=== PATIENT | female | born 1980 | race Caucasian/White ===

== ENCOUNTER 2022-07-25 12:49 | Emergency (ER) | payer BC ==
[~2022-07-25] VITALS: Ht 165.1 cm; Wt 61.2 kg
[2022-07-25 12:50] VITALS: BP_SYST 132
--- NOTE | 2022-07-25 12:50 | NUR ---
Placed in room 02 . Placed on jailer/training officer, blood pressure machine and pulse oximeter. To gown for exam. Side rails up. Report given to DELVIS RENDON.
--- NOTE | 2022-07-25 12:55 | NUR ---
ER DR. MATTHEW AT THE BEDSIDE EXAMINING PT
--- NOTE | 2022-07-25 12:59 | NUR ---
PT COMES IN WALKING WITH Diily for c/o epigastric pain x 2 days after eating peppercinnis. Denies sob, states "I think I have chest pain" Resp even and unlabored, on ra @98%. skin w/d/i
[2022-07-25] MEDS ORDERED: BELLADONNA ALKALOIDS/PHENOBARB 5 ML UDC PO ONE (13:30)
[2022-07-25] MEDS ORDERED: LIDOCAINE VISCOUS 2%, 15 ML UDC MM ONE (13:30)
[2022-07-25] MEDS ORDERED: MAG-AL HYDROX/SIMETH 30 ML UDC PO ONE (13:30)
[2022-07-25 13:42] LABS: BASOPHILS % (AUTO) 0.3 % (0.0-2.0); EOSINOPHILS % (AUTO) 0.3 % (0.0-4.0); HEMATOCRIT 37.6 % (36-48); HEMOGLOBIN 12.3 g/dL (12.0-16.0); LYMPHOCYTES # (AUTO) 0.9 K/uL (1.0-5.5); LYMPHOCYTES % (AUTO) 12.4 % (20.5-51.5); MEAN CORPUSCULAR HEMOGLOBIN 27 pg (27-31); MEAN CORPUSCULAR HGB CONC 33 % (32-36); MEAN CORPUSCULAR VOLUME 83 fL (79.0-98.0); MONOCYTES # (AUTO) 0.6 K/uL (0.0-1.0); MONOCYTES % (AUTO) 8.7 % (1.7-9.3); NEUTROPHILS # (AUTO) 5.5 K/uL (1.8-7.7); NEUTROPHILS % (AUTO) 78.3 % (40.0-70.0); PLATELET COUNT (AUTO) 250 K/uL (130-430); RED BLOOD CELL COUNT(AUTO) 4.52 MIL/uL (4.2-6.2); RED CELL DISTRIBUTION WIDTH 12.9 % (9.0-15.0)
[2022-07-25 13:51] LABS: CALCIUM 8.2 mg/dL (8.4-11.0); CREATININE 0.72 mg/dL (0.55-1.30)
[2022-07-25 14:09] LABS: ALBUMIN 3.6 g/dL (3.4-4.8); TOTAL BILIRUBIN 3.4 mg/dL (0.0-1.0)
--- NOTE | 2022-07-25 14:29 | NUR ---
PTREPORTS THAT HER MEDS GIVEN DID PROVIDE RELIEF, DR MATTHEW INFORMED.
--- NOTE | 2022-07-25 14:58 | NUR ---
PT REPORTS THAT THE MEDS GIVEN ACTUALLY DID HELP HER ABD EPIGASTRIC PAIN. DR MATTHEW INFORMED.
[2022-07-25] MEDS ORDERED: MORPHINE 4 MG INJ. 4 MG/ML VIAL IVP ONE (15:00)
[2022-07-25] MEDS ORDERED: NACL 0.9% 1,000 ML IV ONE (15:00)
[2022-07-25] MEDS ORDERED: ONDANSETRON HCL 4 MG/2 ML VIAL IVP ONE (15:00)
--- NOTE | 2022-07-25 15:12 | NUR ---
PT REFUSED IV MEDS, DR MATTHEW INFORMED.
[2022-07-25] MEDS ORDERED: FAMO40TA7 PO (15:22)
== END 2022-07-25 15:21 | disposition home or self-care (01) ==
LOC: SED 12:49
DX: K80.20 Calculus of gallbladder without cholecystitis without obstruction (principal); R10.13 Epigastric pain; Z79.899 Other long term (current) drug therapy
CPT/HCPCS: 99284; 76700; 80053; 83690; 85025; 36415; J2001